=== PATIENT | female | born 1960 | race Caucasian/White ===

== ENCOUNTER → 2017-02-14 | Outpatient (CLI) | payer BC ==
[2014-06-26 09:35] VITALS: BP 116/60
[~2017-02-14] MED LIST: APIDRA SC; CENTRUM SILVER1 TAB PO; CO Q-10 100 MG-1 SGL PO; CRESTOR20 MG PO; HCTZ/LISINOPRIL1 TAB PO; IBUPROFEN200 M1 PO; IMITREX100 MG PO; LOTRISONE 0.05%1 CRE TP
== END ==
LOC: LAB 07:41 → RAD 07:41
DX: R60.9 Edema, unspecified (principal)

== ENCOUNTER → 2017-03-05 | Outpatient (CLI) | payer BC ==
[2014-06-26 09:35] VITALS: BP 116/60
== END ==
LOC: LAB 16:48
DX: E10.9 Type 1 diabetes mellitus without complications (principal); E03.4 Atrophy of thyroid (acquired)

== ENCOUNTER → 2017-05-22 | Outpatient (CLI) | payer BC ==
[2014-06-26 09:35] VITALS: BP 116/60
== END ==
LOC: LAB 17:09
DX: E10.9 Type 1 diabetes mellitus without complications (principal); I87.2 Venous insufficiency (chronic) (peripheral)

== ENCOUNTER → 2017-08-07 | Outpatient (CLI) | payer BC ==
[2014-06-26 09:35] VITALS: BP 116/60
== END ==
LOC: LAB 15:35
DX: E10.8 Type 1 diabetes mellitus with unspecified complications (principal); I10 Essential (primary) hypertension; E03.9 Hypothyroidism, unspecified; E78.5 Hyperlipidemia, unspecified

== ENCOUNTER → 2018-04-03 | Outpatient (CLI) | payer BC ==
[2014-06-26 09:35] VITALS: BP 116/60
[2018-04-03 07:19] LABS: EOS # 0.3 (0.04-0.40); EOS % 3.4 % (1.0-5.0); HEMATOCRIT 38.4 % (37.0-47.0); HEMOGLOBIN 12.4 g/dL (12.5-16.0); LYMPH# 1.8 (1.50-4.00); MEAN CELL VOLUME 93 fl (78-100); MEAN CORPUSCULAR HEMOGLOBIN 30 pg (27-31); MEAN CORPUSCULAR HGB CONC 32 g/dL (33-37); MEAN PLATELET VOLUME 11.3 fl (7.4-10.4); MONO # 0.5 (0.20-0.80); NEU # 4.8 (1.40-6.50); PLATELET COUNT 270 K/mm3 (130-400); RED BLOOD COUNT 4.15 M/mm3 (4.10-5.30); RED CELL DISTRIBUTION WIDTH 13.4 % (11.5-14.5); WHITE BLOOD COUNT 7.4 K/mm3 (4.8-10.8)
[2018-04-03 07:27] LABS: ALBUMIN 3.9 g/dL (3.5-5.0); POTASSIUM 3.9 mmol/L (3.6-5.0); TOTAL BILIRUBIN 0.6 mg/dL (0.2-1.3); TOTAL PROTEIN 7.6 g/dL (6.3-8.2)
[2018-04-03 07:55] LABS: URINE APPEARANCE CLEAR; URINE BILIRUBIN NEGATIVE (NEGATIVE); URINE BLOOD NEGATIVE (NEGATIVE); URINE COLOR YELLOW; URINE GLUCOSE NEGATIVE (NEGATIVE); URINE KETONE NEGATIVE (NEGATIVE); URINE LEUKOCYTE ESTERASE NEGATIVE (NEGATIVE); URINE NITRATE NEGATIVE (NEGATIVE); URINE PROTEIN(semi-quant) TRACE mg/dL (NEGATIVE); URINE UROBILINOGEN NORMAL (NORMAL); URINE WBC 0-1 /hpf (0-3)
[2018-04-03 08:23] LABS: ERYTHROCYTE SEDIMENTATION RATE 37 mm/hr (0-30)
== END ==
LOC: LAB 07:00
PROVIDERS: Internal Medicine
DX: Z00.00 Encounter for general adult medical examination without abnormal findings (principal); Z12.11 Encounter for screening for malignant neoplasm of colon; E10.9 Type 1 diabetes mellitus without complications; E78.5 Hyperlipidemia, unspecified

== ENCOUNTER → 2018-09-02 | Outpatient (CLI) | payer BC ==
[2014-06-26 09:35] VITALS: BP 116/60
[2018-09-02 07:23] LABS: BASO # 0.1 (0.02-0.10); EOS # 0.2 (0.04-0.40); EOS % 2.9 % (1.0-5.0); HEMATOCRIT 37.5 % (37.0-47.0); HEMOGLOBIN 12.5 g/dL (12.5-16.0); LYMPH# 2.2 (1.50-4.00); MEAN CELL VOLUME 92 fl (78-100); MEAN CORPUSCULAR HEMOGLOBIN 31 pg (27-31); MEAN CORPUSCULAR HGB CONC 33 g/dL (33-37); MONO # 0.5 (0.20-0.80); NEU # 3.3 (1.40-6.50); PLATELET COUNT 214 K/mm3 (130-400); RED CELL DISTRIBUTION WIDTH 13.2 % (11.5-14.5); WHITE BLOOD COUNT 6.2 K/mm3 (4.8-10.8)
[2018-09-02 08:04] LABS: ALBUMIN 3.8 g/dL (3.5-5.0); CALCIUM 9.2 mg/dL (8.4-10.2); POTASSIUM 3.6 mmol/L (3.6-5.0); TOTAL BILIRUBIN 0.9 mg/dL (0.2-1.3)
[2018-09-02 08:47] LABS: ERYTHROCYTE SEDIMENTATION RATE 27 mm/hr (0-30)
[2018-09-02 09:15] LABS: URINE APPEARANCE CLEAR; URINE BILIRUBIN NEGATIVE (NEGATIVE); URINE BLOOD NEGATIVE (NEGATIVE); URINE COLOR YELLOW; URINE GLUCOSE NEGATIVE (NEGATIVE); URINE KETONE NEGATIVE (NEGATIVE); URINE LEUKOCYTE ESTERASE NEGATIVE (NEGATIVE); URINE MUCUS PRESENT (NOT PRESENT); URINE NITRATE NEGATIVE (NEGATIVE); URINE PROTEIN(semi-quant) TRACE mg/dL (NEGATIVE); URINE UROBILINOGEN NORMAL (NORMAL); URINE WBC 0-1 /hpf (0-3)
== END ==
LOC: LAB 07:02
PROVIDERS: Internal Medicine
DX: Z12.11 Encounter for screening for malignant neoplasm of colon (principal); Z00.00 Encounter for general adult medical examination without abnormal findings; E10.9 Type 1 diabetes mellitus without complications; E78.5 Hyperlipidemia, unspecified

== ENCOUNTER → 2018-09-06 | Outpatient (CLI) | payer BC ==
[2014-06-26 09:35] VITALS: BP 116/60
== END ==
LOC: LAB 06:57
DX: Z12.11 Encounter for screening for malignant neoplasm of colon (principal); Z00.00 Encounter for general adult medical examination without abnormal findings; E10.9 Type 1 diabetes mellitus without complications

== ENCOUNTER → 2018-12-23 | Outpatient (CLI) | payer BC ==
[2014-06-26 09:35] VITALS: BP 116/60
== END ==
LOC: LAB 12:58
DX: E10.9 Type 1 diabetes mellitus without complications (principal)

== ENCOUNTER → 2019-12-06 | Outpatient (CLI) | payer BC ==
[2014-06-26 09:35] VITALS: BP 116/60
[2019-12-06 08:12] LABS: EOS # 0.1 (0.04-0.40); EOS % 1.9 % (1.0-5.0); HEMATOCRIT 38.4 % (37.0-47.0); HEMOGLOBIN 12.6 g/dL (12.5-16.0); LYMPH# 1.9 (1.50-4.00); MEAN CELL VOLUME 93 fl (78-100); MEAN CORPUSCULAR HEMOGLOBIN 31 pg (27-31); MEAN CORPUSCULAR HGB CONC 33 g/dL (33-37); MEAN PLATELET VOLUME 11.2 fl (7.4-10.4); MONO # 0.4 (0.20-0.80); NEU # 4.5 (1.40-6.50); PLATELET COUNT 254 K/mm3 (130-400); RED BLOOD COUNT 4.11 M/mm3 (4.10-5.30); RED CELL DISTRIBUTION WIDTH 12.9 % (11.5-14.5); WHITE BLOOD COUNT 6.9 K/mm3 (4.8-10.8)
[2019-12-06 08:21] LABS: POTASSIUM 3.7 mmol/L (3.5-5.1)
[2019-12-06 08:22] LABS: CALCIUM 9.5 mg/dL (8.3-10.5)
[2019-12-06 08:23] LABS: TOTAL PROTEIN 7.1 g/dL (6.4-8.3)
[2019-12-06 08:41] LABS: TOTAL BILIRUBIN 0.8 mg/dL (0.2-1.2)
== END ==
LOC: LAB 07:58
PROVIDERS: Internal Medicine
DX: E10.9 Type 1 diabetes mellitus without complications (principal); I10 Essential (primary) hypertension; E78.5 Hyperlipidemia, unspecified

== ENCOUNTER → 2020-05-15 | Outpatient (CLI) | payer BC ==
[2014-06-26 09:35] VITALS: BP 116/60
[2020-05-15 07:55] LABS: EOS # 0.1 (0.04-0.40); EOS % 1.5 % (1.0-5.0); HEMATOCRIT 39.2 % (37.0-47.0); HEMOGLOBIN 12.7 g/dL (12.5-16.0); LYMPH# 2.1 (1.50-4.00); MEAN CELL VOLUME 94 fl (78-100); MEAN CORPUSCULAR HEMOGLOBIN 30 pg (27-31); MEAN CORPUSCULAR HGB CONC 32 g/dL (33-37); MEAN PLATELET VOLUME 11.6 fl (7.4-10.4); MONO # 0.4 (0.20-0.80); NEU # 3.9 (1.40-6.50); PLATELET COUNT 262 K/mm3 (130-400); RED BLOOD COUNT 4.18 M/mm3 (4.10-5.30); WHITE BLOOD COUNT 6.5 K/mm3 (4.8-10.8)
[2020-05-15 08:23] LABS: CALCIUM 9.3 mg/dL (8.3-10.5); POTASSIUM 3.6 mmol/L (3.5-5.1); TOTAL BILIRUBIN 1.1 mg/dL (0.2-1.2); TOTAL PROTEIN 7.4 g/dL (6.4-8.3)
[2020-05-15 08:27] LABS: MAGNESIUM 1.89 mg/dL (1.60-2.60)
[2020-05-15 08:59] LABS: ERYTHROCYTE SEDIMENTATION RATE 32 mm/hr (0-30)
[2020-05-17 13:51] LABS: CREATININE OTHER SOURCE A
== END ==
LOC: LAB 07:15
PROVIDERS: Internal Medicine
DX: Z00.00 Encounter for general adult medical examination without abnormal findings (principal)

== ENCOUNTER → 2020-05-24 | Outpatient (CLI) | payer BC ==
[2014-06-26 09:35] VITALS: BP 116/60
[2020-05-24 08:18] LABS: URINE APPEARANCE CLEAR; URINE BILIRUBIN NEGATIVE (NEGATIVE); URINE BLOOD NEGATIVE (NEGATIVE); URINE COLOR YELLOW; URINE GLUCOSE NEGATIVE (NEGATIVE); URINE KETONE NEGATIVE (NEGATIVE); URINE LEUKOCYTE ESTERASE NEGATIVE (NEGATIVE); URINE NITRATE NEGATIVE (NEGATIVE); URINE PROTEIN(semi-quant) NEGATIVE (NEGATIVE); URINE UROBILINOGEN NORMAL (NORMAL)
[2020-05-24 08:19] LABS: URINE MUCUS PRESENT (NOT PRESENT)
== END ==
LOC: LAB 07:14
PROVIDERS: Internal Medicine
DX: Z00.00 Encounter for general adult medical examination without abnormal findings (principal)

== ENCOUNTER → 2020-09-04 | Outpatient (CLI) | payer BC ==
[2014-06-26 09:35] VITALS: BP 116/60
== END ==
LOC: LAB 07:39
DX: E10.9 Type 1 diabetes mellitus without complications (principal); I10 Essential (primary) hypertension

== ENCOUNTER → 2021-01-08 | Outpatient (CLI) | payer BC ==
[2014-06-26 09:35] VITALS: BP 116/60
[2021-01-08 07:28] LABS: EOS # 0.1 (0.04-0.40); EOS % 2.2 % (1.0-5.0); HEMATOCRIT 37.6 % (37.0-47.0); HEMOGLOBIN 12.2 g/dL (12.5-16.0); LYMPH# 1.8 (1.50-4.00); MEAN CELL VOLUME 95 fl (78-100); MEAN CORPUSCULAR HEMOGLOBIN 31 pg (27-31); MEAN CORPUSCULAR HGB CONC 32 g/dL (33-37); MONO # 0.3 (0.20-0.80); NEU # 3.3 (1.40-6.50); PLATELET COUNT 247 K/mm3 (130-400); RED BLOOD COUNT 3.98 M/mm3 (4.10-5.30); RED CELL DISTRIBUTION WIDTH 13.2 % (11.5-14.5); WHITE BLOOD COUNT 5.5 K/mm3 (4.8-10.8)
[2021-01-08 07:34] LABS: POTASSIUM 3.7 mmol/L (3.5-5.1)
[2021-01-08 07:35] LABS: ALBUMIN 3.7 g/dL (3.5-5.0)
[2021-01-08 07:37] LABS: TOTAL PROTEIN 6.5 g/dL (6.4-8.3)
[2021-01-08 07:39] LABS: TOTAL BILIRUBIN 0.8 mg/dL (0.2-1.2)
== END ==
LOC: LAB 06:52
PROVIDERS: Internal Medicine
DX: E03.4 Atrophy of thyroid (acquired) (principal); E78.2 Mixed hyperlipidemia; E10.9 Type 1 diabetes mellitus without complications; K90.9 Intestinal malabsorption, unspecified

== ENCOUNTER → 2021-05-03 | Outpatient (CLI) | payer BC ==
[2021-05-03 07:18] LABS: BASO # 0.07 (0.02-0.10); EOS # 0.13 (0.04-0.40); EOS % 2.1 % (1.0-5.0); HEMOGLOBIN 12.2 g/dL (12.5-16.0); LYMPH# 1.99 (1.50-4.00); MEAN CELL VOLUME 93 fl (78-100); MEAN CORPUSCULAR HEMOGLOBIN 31 pg (27-31); MEAN CORPUSCULAR HGB CONC 33 g/dL (33-37); MEAN PLATELET VOLUME 10.7 fl (7.4-10.4); MONO # 0.34 (0.20-0.80); NEU # 3.56 (1.40-6.50); PLATELET COUNT 245 K/mm3 (130-400); RED CELL DISTRIBUTION WIDTH 12.8 % (11.5-14.5); WHITE BLOOD COUNT 6.1 K/mm3 (4.8-10.8)
[2021-05-03 07:30] LABS: ALBUMIN 3.7 g/dL (3.5-5.0)
[2021-05-03 07:31] LABS: CALCIUM 8.9 mg/dL (8.3-10.5)
[2021-05-03 07:32] LABS: TOTAL PROTEIN 6.6 g/dL (6.4-8.3)
[2021-05-03 07:34] LABS: TOTAL BILIRUBIN 0.8 mg/dL (0.2-1.2)
[2021-05-03 07:39] LABS: MAGNESIUM 1.8 mg/dL (1.60-2.60)
[2021-05-03 07:51] LABS: URINE APPEARANCE CLEAR; URINE BILIRUBIN NEGATIVE (NEGATIVE); URINE BLOOD TRACE (NEGATIVE); URINE COLOR YELLOW; URINE GLUCOSE NEGATIVE (NEGATIVE); URINE KETONE 1+ (NEGATIVE); URINE LEUKOCYTE ESTERASE NEGATIVE (NEGATIVE); URINE MUCUS PRESENT (NOT PRESENT); URINE NITRATE NEGATIVE (NEGATIVE); URINE PROTEIN(semi-quant) NEGATIVE (NEGATIVE); URINE UROBILINOGEN NORMAL (NORMAL)
[2021-05-03 09:52] LABS: ERYTHROCYTE SEDIMENTATION RATE 13 mm/hr (0-30)
== END ==
LOC: LAB 06:45
PROVIDERS: Internal Medicine
DX: Z00.00 Encounter for general adult medical examination without abnormal findings (principal)

== ENCOUNTER → 2021-07-12 | Outpatient (CLI) | payer BC | LOC: LAB 07:07 | DX: K90.9 Intestinal malabsorption, unspecified (principal); E78.2 Mixed hyperlipidemia ==

== ENCOUNTER → 2021-09-07 | Outpatient (CLI) | payer BC | LOC: LAB 06:45 | DX: E10.9 Type 1 diabetes mellitus without complications (principal) ==

== ENCOUNTER → 2021-10-07 | Outpatient (CLI) | payer BC | LOC: LAB 13:38 | DX: Z20.822 Contact with and (suspected) exposure to COVID-19 (principal) ==

== ENCOUNTER → 2022-01-11 | Outpatient (CLI) | payer BC ==
[2022-01-11 07:21] LABS: BASO # 0.05 K/mm3 (0.02-0.10); EOS % 1.7 % (1.0-5.0); HEMATOCRIT 36.3 % (37.0-47.0); HEMOGLOBIN 11.9 g/dL (12.5-16.0); MEAN CELL VOLUME 93 fl (78-100); MEAN CORPUSCULAR HEMOGLOBIN 31 pg (27-31); MEAN CORPUSCULAR HGB CONC 33 g/dL (33-37); MEAN PLATELET VOLUME 11.3 fl (7.4-10.4); MONO # 0.34 K/mm3 (0.20-0.80); PLATELET COUNT 264 K/mm3 (130-400); RED BLOOD COUNT 3.89 M/mm3 (4.10-5.30)
[2022-01-11 07:25] LABS: ALBUMIN 3.8 g/dL (3.5-5.0); POTASSIUM 3.7 mmol/L (3.5-5.1)
[2022-01-11 07:26] LABS: CALCIUM 9.5 mg/dL (8.3-10.5)
[2022-01-11 07:27] LABS: TOTAL PROTEIN 6.7 g/dL (6.4-8.3)
[2022-01-11 07:34] LABS: MAGNESIUM 1.79 mg/dL (1.60-2.60)
== END ==
LOC: LAB 06:29
PROVIDERS: Internal Medicine
DX: I10 Essential (primary) hypertension (principal); E10.9 Type 1 diabetes mellitus without complications

== ENCOUNTER → 2022-04-11 | Outpatient (CLI) | payer BC ==
[2022-04-11 06:48] LABS: BASO # 0.03 K/mm3 (0.02-0.10); EOS # 0.12 K/mm3 (0.04-0.40); HEMATOCRIT 37.2 % (37.0-47.0); LYMPH# 2.02 K/mm3 (1.50-4.00); MEAN CELL VOLUME 95 fl (78-100); MEAN CORPUSCULAR HEMOGLOBIN 31 pg (27-31); MEAN CORPUSCULAR HGB CONC 32 g/dL (33-37); MEAN PLATELET VOLUME 10.9 fl (7.4-10.4); MONO # 0.38 K/mm3 (0.20-0.80); NEU # 3.35 K/mm3 (1.40-6.50); PLATELET COUNT 242 K/mm3 (130-400); RED BLOOD COUNT 3.91 M/mm3 (4.10-5.30); WHITE BLOOD COUNT 5.9 K/mm3 (4.8-10.8)
[2022-04-11 07:35] LABS: ALBUMIN 3.7 g/dL (3.4-4.8); POTASSIUM 4.1 mmol/L (3.5-5.1)
[2022-04-11 07:36] LABS: CALCIUM 9.8 mg/dL (8.3-10.5)
[2022-04-11 07:38] LABS: TOTAL PROTEIN 6.3 g/dL (6.2-8.1)
[2022-04-11 07:40] LABS: TOTAL BILIRUBIN 0.7 mg/dL (0.2-1.2)
[2022-04-11 07:45] LABS: MAGNESIUM 1.87 mg/dL (1.60-2.60)
== END ==
LOC: LAB 06:24
PROVIDERS: Internal Medicine
DX: E03.4 Atrophy of thyroid (acquired) (principal); I10 Essential (primary) hypertension; E78.2 Mixed hyperlipidemia; E10.9 Type 1 diabetes mellitus without complications; K90.9 Intestinal malabsorption, unspecified

== ENCOUNTER → 2022-07-27 | Outpatient (CLI) | payer BC ==
[2022-07-27 07:15] LABS: BASO # 0.04 K/mm3 (0.02-0.10); EOS % 1.5 % (1.0-5.0); HEMATOCRIT 39.1 % (37.0-47.0); HEMOGLOBIN 12.6 g/dL (12.5-16.0); LYMPH# 1.71 K/mm3 (1.50-4.00); MEAN CELL VOLUME 96 fl (78-100); MEAN CORPUSCULAR HEMOGLOBIN 31 pg (27-31); MEAN CORPUSCULAR HGB CONC 32 g/dL (33-37); MONO # 0.35 K/mm3 (0.20-0.80); NEU # 4.27 K/mm3 (1.40-6.50); PLATELET COUNT 243 K/mm3 (130-400); RED BLOOD COUNT 4.06 M/mm3 (4.10-5.30); RED CELL DISTRIBUTION WIDTH 12.9 % (11.5-14.5); WHITE BLOOD COUNT 6.5 K/mm3 (4.8-10.8)
[2022-07-27 07:22] LABS: POTASSIUM 4.5 mmol/L (3.5-5.1)
[2022-07-27 07:24] LABS: CALCIUM 9.6 mg/dL (8.3-10.5)
[2022-07-27 07:25] LABS: TOTAL PROTEIN 6.9 g/dL (6.2-8.1)
[2022-07-27 07:27] LABS: TOTAL BILIRUBIN 0.7 mg/dL (0.2-1.2)
== END ==
LOC: LAB 06:55
PROVIDERS: Internal Medicine
DX: I10 Essential (primary) hypertension (principal); E78.2 Mixed hyperlipidemia; E10.9 Type 1 diabetes mellitus without complications

== ENCOUNTER → 2024-04-19 | Outpatient (CLI) | payer OTHER | LOC: LAB 08:34 | DX: N39.0 Urinary tract infection, site not specified (principal) ==

== ENCOUNTER → 2024-08-08 | Outpatient (CLI) | payer OTHER ==
[2024-08-08 09:04] LABS: URINE WBC 0 /hpf (0-3)
[2024-08-08 09:24] LABS: ALBUMIN 4.2 g/dL (3.4-4.8); BASO # 0.03 K/mm3 (0.02-0.10); EOS # 0.13 K/mm3 (0.04-0.40); EOS % 2.2 % (1.0-5.0); HEMOGLOBIN 13.1 g/dL (12.5-16.0); LYMPH# 1.87 K/mm3 (1.50-4.00); MEAN CELL VOLUME 96 fl (78-100); MEAN CORPUSCULAR HEMOGLOBIN 31 pg (27-31); MEAN CORPUSCULAR HGB CONC 33 g/dL (33-37); MEAN PLATELET VOLUME 10.6 fl (7.4-10.4); MONO # 0.32 K/mm3 (0.20-0.80); NEU # 3.48 K/mm3 (1.40-6.50); PLATELET COUNT 254 K/mm3 (130-400); RED BLOOD COUNT 4.18 M/mm3 (4.10-5.30); RED CELL DISTRIBUTION WIDTH 12.9 % (11.5-14.5); WHITE BLOOD COUNT 5.8 K/mm3 (4.8-10.8)
[2024-08-08 09:26] LABS: TOTAL PROTEIN 7.3 g/dL (6.2-8.1)
[2024-08-08 09:28] LABS: TOTAL BILIRUBIN 0.8 mg/dL (0.2-1.2)
[2024-08-08 09:33] LABS: MAGNESIUM 1.83 mg/dL (1.60-2.60)
[2024-08-08 10:01] LABS: URINE APPEARANCE CLEAR (CLEAR); URINE COLOR YELLOW (YELLOW)
[2024-08-08 10:02] LABS: URINE BILIRUBIN NEGATIVE (NEGATIVE); URINE BLOOD NEGATIVE (NEGATIVE); URINE GLUCOSE NEGATIVE (NEGATIVE); URINE KETONE NEGATIVE (NEGATIVE); URINE LEUKOCYTE ESTERASE NEGATIVE (NEGATIVE); URINE MUCUS PRESENT (NOT PRESENT); URINE NITRATE NEGATIVE (NEGATIVE); URINE PROTEIN(semi-quant) NEGATIVE (NEGATIVE)
[2024-08-08 22:59] LABS: CREATININE OTHER SOURCE 15 mg/dL (63-166)
== END ==
LOC: LAB 08:46
PROVIDERS: Internal Medicine
DX: I10 Essential (primary) hypertension (principal); E03.4 Atrophy of thyroid (acquired); E78.2 Mixed hyperlipidemia; E10.9 Type 1 diabetes mellitus without complications

== ENCOUNTER → 2024-11-21 | Outpatient (CLI) | payer OTHER | LOC: RAD 09:42 | DX: M17.11 Unilateral primary osteoarthritis, right knee (principal) ==

== ENCOUNTER → 2025-02-20 | Outpatient (CLI) | payer OTHER ==
[2025-02-20 09:25] LABS: CALCIUM 9.1 mg/dL (8.3-10.5)
[2025-02-20 09:26] LABS: TOTAL PROTEIN 7.2 g/dL (6.2-8.1)
[2025-02-20 09:28] LABS: TOTAL BILIRUBIN 1.3 mg/dL (0.2-1.2)
[2025-02-20 09:33] LABS: D-DIMER 1.48 mg/L FEU (0.15-0.50)
== END ==
LOC: LAB 08:55
PROVIDERS: Family Medicine
DX: R22.41 Localized swelling, mass and lump, right lower limb (principal)